=== PATIENT | female | born 1970 | race Hispanic/Latino ===

== ENCOUNTER 2020-09-21 12:35 | Inpatient (IN) | payer BC, OTHER ==
[~2020-09-21] VITALS: Ht 160 cm; Wt 92.3 kg
[~2020-09-21 12:35] MED LIST: ATOR10TA69 PO; GLIM4TAB36 PO; Gemfibrozil PO; INSLAN SQ; LOSA25TA41 PO; METF-446 PO; METO25TA6 PO
[2020-09-21] MEDS ORDERED: ONDANSETRON 4MG INJ ONE ×2 (13:50→20:58)
[2020-09-21] MEDS ORDERED: MORPHINE 4 MG SYG ONE (13:51)
[2020-09-21] MEDS ORDERED: 0.9%NACL 1000ML 1,000 ML IV ONE (13:51)
[2020-09-21 13:58] LABS: BASOPHILS % (AUTO) 0.7 % (0.0-5.0); EOSINOPHILS % (AUTO) 6.4 % (0.0-8.0); HEMATOCRIT 30.2 % (36-48); MEAN CORPUSCULAR HEMOGLOBIN 29.6 pg (27.0-33.0); MEAN CORPUSCULAR HGB CONC 31.5 g/dL (32.0-36.0); MEAN CORPUSCULAR VOLUME 94.1 fL (79-99); MONOCYTES % (AUTO) 5.4 % (3.0-13.0); NEUTROPHILS % (AUTO) 67.2 % (40.0-77.0); PLATELET COUNT (AUTO) 279 K/uL (130-400); RED BLOOD CELL COUNT(AUTO) 3.21 MIL/uL (4.00-5.50); WHITE BLOOD COUNT (AUTO) 6.9 K/uL (4.8-10.8)
[2020-09-21 14:06] LABS: CREATININE 4.7 mg/dL (0.5-1.5); POTASSIUM 4.6 mmol/L (3.5-5.1)
[2020-09-21 14:15] LABS: ALBUMIN 2.8 g/dL (3.5-5.0); BILIRUBIN,TOTAL 0.1 mg/dL (0.2-1.0); TOTAL PROTEIN, SERUM 7.7 g/dL (6.0-8.3)
[2020-09-21 14:36] LABS: APPEARANCE,URINE Cloudy (CLEAR); BILIRUBIN,URINE Negative (NEGATIVE); COLOR,URINE Yellow (YELLOW); GLUCOSE, URINE (UA) 250 mg/dL (NEGATIVE); KETONES,URINE Negative (NEGATIVE); LEUKOCYTE ESTERASE ,URINE Negative (NEGATIVE); NITRATE,URINE Negative (NEGATIVE); OCCULT BLOOD,URINE Trace (NEGATIVE); PH,URINE 5.5 (5.0-8.0); PROTEIN,URINE >=1000 mg/dL (NEGATIVE); UROBILINOGEN,URINE 0.2 mg/dL (0.2-1.0)
[2020-09-21 14:40] LABS: HCG,QUAL RESULT NEGATIVE (NEGATIVE)
[2020-09-21 14:43] LABS: BACTERIA,URINE Few /HPF (None Seen)
[2020-09-21 14:44] LABS: SQUAMOUS EPITHELIAL CELL,UR Few /HPF (0-2)
[2020-09-21] MEDS ORDERED: DEXTROSE 5%-WATER 1,000 ML IV SCH (16:45)
[2020-09-21] MEDS ORDERED: ACETAMINOPHEN 325 MG TAB PO PRN (16:45)
[2020-09-21] MEDS ORDERED: LACTULOSE 20 GM/30 ML UDCUP PO PRN (16:45)
[2020-09-21] MEDS ORDERED: CEFTRIAXONE 1G VIAL ONE (16:51)
[2020-09-21] MEDS ORDERED: FAMOTIDINE 20MG VIAL IV ONE ×2 (16:52→20:49)
[2020-09-21] MEDS ORDERED: HYDRALAZINE 20MG/ML VIAL IV PRN (17:00)
[2020-09-21] MEDS ORDERED: AMLODIPINE 5 MG TAB PO SCH (17:00)
[2020-09-21 17:08] LABS: HEMOGLOBIN A1C 5.2 % (4.0-6.0)
[2020-09-21] MEDS ORDERED: HYDRALAZINE 20MG/ML VIAL ONE (17:21)
[2020-09-21] MEDS ORDERED: ZOSYN 3.375GM+NS 50ML 50 ML IV ONE (17:21)
[2020-09-21 17:40] LABS: CREATININE,URINE RANDOM 108 mg/dL (30-135); SODIUM,URINE RANDOM 67 mmol/l (40-220)
[2020-09-21 17:50] LABS: % IRON SATURATION 33.7 % (22-44)
[2020-09-21 18:01] LABS: THYROID STIMULATING HORMONE 1.67 uIU/mL (0.36-3.74)
[2020-09-21] MEDS ORDERED: ACETAMINOPHEN WITH CODEINE 1 TAB TAB PO PRN ×2 (20:45)
[2020-09-21] MEDS ORDERED: HEPARIN 5,000 UNIT VIAL ONE (20:48)
[2020-09-21] MEDS ORDERED: METOPROLOL TARTRATE 25 MG TAB ONE (20:48)
[2020-09-21] MEDS ORDERED: AMLODIPINE 5 MG TAB ONE (20:48)
[2020-09-21] MEDS ORDERED: ACETAMINOPHEN WITH CODEINE 1 TAB TAB ONE (20:49)
[2020-09-21] MEDS ORDERED: DEXTROSE 5%-WATER 1,000 ML IV ONE (20:51)
[2020-09-21] MEDS: HEPARIN 5,000 UNIT VIAL SQ SCH (21:00)
[2020-09-21] MEDS: AMLODIPINE 5 MG TAB PO SCH (21:00)
[2020-09-21] MEDS: METOPROLOL TARTRATE 25 MG TAB PO SCH (21:00)
[2020-09-21 21:55] VITALS: BP 133/75
[2020-09-21 23:59] VITALS: BP 105/58
[2020-09-22 04:00] VITALS: BP 123/72
[2020-09-22 05:19] LABS: BASOPHILS % (AUTO) 0.8 % (0.0-5.0); EOSINOPHILS % (AUTO) 3.6 % (0.0-8.0); HEMATOCRIT 27.5 % (36-48); LYMPHOCYTES % (AUTO) 22.7 % (21.0-51.0); MEAN CORPUSCULAR HEMOGLOBIN 28.9 pg (27.0-33.0); MEAN CORPUSCULAR HGB CONC 30.5 g/dL (32.0-36.0); MEAN CORPUSCULAR VOLUME 94.5 fL (79-99); MONOCYTES % (AUTO) 4.4 % (3.0-13.0); NEUTROPHILS % (AUTO) 68.2 % (40.0-77.0); PLATELET COUNT (AUTO) 279 K/uL (130-400); RED BLOOD CELL COUNT(AUTO) 2.91 MIL/uL (4.00-5.50); RED CELL DISTRIBUTION WIDTH 14.9 % (11.0-15.5); WHITE BLOOD COUNT (AUTO) 6.4 K/uL (4.8-10.8)
[2020-09-22 05:46] LABS: ALBUMIN 2.6 g/dL (3.5-5.0); BILIRUBIN,TOTAL 0.1 mg/dL (0.2-1.0); CREATININE 4.8 mg/dL (0.5-1.5); POTASSIUM 5.1 mmol/L (3.5-5.1); TOTAL PROTEIN, SERUM 7.1 g/dL (6.0-8.3)
[2020-09-22 08:00] VITALS: BP 135/74
[2020-09-22] MEDS ORDERED: SODIUM BICARBONATE 650 MG TAB PO PRN (09:15)
[2020-09-22] MEDS: FAMOTIDINE 20MG VIAL IV SCH (10:13)
[2020-09-22] MEDS: AMLODIPINE 5 MG TAB PO SCH ×2 (10:14→21:18)
[2020-09-22] MEDS: METOPROLOL TARTRATE 25 MG TAB PO SCH ×2 (10:14→21:18)
[2020-09-22] MEDS: 0.9%NACL 1000ML 1,000 ML IV SCH (10:15)
[2020-09-22] MEDS: HEPARIN 5,000 UNIT VIAL SQ SCH ×3 (10:15→20:22)
[2020-09-22] MEDS: ONDANSETRON 4MG INJ IV PRN (10:23)
[2020-09-22 12:00] VITALS: BP 120/71
[2020-09-22] MEDS ORDERED: EPOETIN ALFA-EPBX (NON-ESRD) 10,000 UNIT/ML VIAL SQ SCH (12:00)
[2020-09-22] MEDS: CEFTRIAXONE 1G VIAL IVP SCH (12:27)
[2020-09-22 16:00] VITALS: BP 133/77
[2020-09-22] MEDS: INSULIN HUMULIN R 100 UNIT/ML 3ML SQ SCH ×2 (16:30→20:18)
[2020-09-22 20:00] VITALS: BP 137/72
[2020-09-22] MEDS ORDERED: TEMAZEPAM 7.5 MG CAPSULE PO PRN (20:00)
[2020-09-22 20:47] LABS: PROTEIN,URINE RANDOM 644.8 mg/dL (0-11.9)
[2020-09-22 23:53] VITALS: BP 97/52
[2020-09-23] MEDS: ONDANSETRON 4MG INJ IV PRN (02:27)
[2020-09-23] MEDS: 0.9%NACL 1000ML 1,000 ML IV SCH ×2 (02:30→04:30)
[2020-09-23 04:00] VITALS: BP 104/56
[2020-09-23 05:30] LABS: BASOPHILS % (AUTO) 0.9 % (0.0-5.0); EOSINOPHILS % (AUTO) 7.5 % (0.0-8.0); HEMATOCRIT 26.3 % (36-48); MEAN CORPUSCULAR HEMOGLOBIN 29.1 pg (27.0-33.0); MEAN CORPUSCULAR HGB CONC 30.4 g/dL (32.0-36.0); MEAN CORPUSCULAR VOLUME 95.6 fL (79-99); MONOCYTES % (AUTO) 5.7 % (3.0-13.0); NEUTROPHILS % (AUTO) 56.5 % (40.0-77.0); PLATELET COUNT (AUTO) 238 K/uL (130-400); RED BLOOD CELL COUNT(AUTO) 2.75 MIL/uL (4.00-5.50); RED CELL DISTRIBUTION WIDTH 15.1 % (11.0-15.5); WHITE BLOOD COUNT (AUTO) 5.6 K/uL (4.8-10.8)
[2020-09-23 05:49] LABS: ALBUMIN 2.4 g/dL (3.5-5.0); BILIRUBIN,TOTAL 0.1 mg/dL (0.2-1.0); PHOSPHORUS 6.5 mg/dL (2.5-4.9); POTASSIUM 5.6 mmol/L (3.5-5.1); TOTAL PROTEIN, SERUM 6.6 g/dL (6.0-8.3)
[2020-09-23 07:00] VITALS: BP 155/62
[2020-09-23] MEDS: INSULIN HUMULIN R 100 UNIT/ML 3ML SQ SCH ×4 (07:30→21:00)
[2020-09-23] MEDS: HEPARIN 5,000 UNIT VIAL SQ SCH ×3 (09:00→21:14)
[2020-09-23] MEDS: METOPROLOL TARTRATE 25 MG TAB PO SCH ×2 (09:00→21:13)
[2020-09-23] MEDS: AMLODIPINE 5 MG TAB PO SCH ×2 (09:00→21:13)
[2020-09-23] MEDS: FAMOTIDINE 20MG VIAL IV SCH (09:00)
[2020-09-23] MEDS: CEFTRIAXONE 1G VIAL IVP SCH (10:30)
[2020-09-23 11:30] VITALS: BP 151/72
[2020-09-23] MEDS ORDERED: KAYEXALATE 15GM/60ML ONE (11:53)
[2020-09-23] MEDS ORDERED: KAYEXALATE 15GM/60ML PO SCH (14:15)
[2020-09-23 16:00] VITALS: BP 121/74
[2020-09-23 20:00] VITALS: BP 147/71
[2020-09-23 23:50] VITALS: BP 117/61
[2020-09-24 04:46] VITALS: BP 112/59
[2020-09-24 05:16] LABS: EOSINOPHILS % (AUTO) 9.5 % (0.0-8.0); HEMATOCRIT 28.6 % (36-48); LYMPHOCYTES % (AUTO) 36.5 % (21.0-51.0); MEAN CORPUSCULAR HEMOGLOBIN 29.8 pg (27.0-33.0); MEAN CORPUSCULAR HGB CONC 31.1 g/dL (32.0-36.0); MEAN CORPUSCULAR VOLUME 95.7 fL (79-99); MONOCYTES % (AUTO) 6.4 % (3.0-13.0); NEUTROPHILS % (AUTO) 46.3 % (40.0-77.0); PLATELET COUNT (AUTO) 253 K/uL (130-400); RED BLOOD CELL COUNT(AUTO) 2.99 MIL/uL (4.00-5.50); RED CELL DISTRIBUTION WIDTH 15.4 % (11.0-15.5); WHITE BLOOD COUNT (AUTO) 6.2 K/uL (4.8-10.8)
[2020-09-24 05:37] LABS: ALBUMIN 2.7 g/dL (3.5-5.0); BILIRUBIN,TOTAL 0.1 mg/dL (0.2-1.0); CREATININE 5.6 mg/dL (0.5-1.5); TOTAL PROTEIN, SERUM 7.2 g/dL (6.0-8.3)
[2020-09-24 07:00] VITALS: BP 140/72
[2020-09-24] MEDS: INSULIN HUMULIN R 100 UNIT/ML 3ML SQ SCH ×2 (07:18→11:30)
[2020-09-24] MEDS: AMLODIPINE 5 MG TAB PO SCH (09:51)
[2020-09-24] MEDS: CEFTRIAXONE 1G VIAL IVP SCH (09:51)
[2020-09-24] MEDS: FAMOTIDINE 20MG VIAL IV SCH (09:51)
[2020-09-24] MEDS: METOPROLOL TARTRATE 25 MG TAB PO SCH (09:51)
[2020-09-24] MEDS: HEPARIN 5,000 UNIT VIAL SQ SCH (09:55)
[2020-09-24 11:30] VITALS: BP 125/67
[2020-09-24] MEDS ORDERED: METF-446 PO (14:51)
[2020-09-24] MEDS ORDERED: ATOR10TA69 PO (14:51)
[2020-09-24] MEDS ORDERED: LOSA25TA41 PO (14:51)
[2020-09-24] MEDS ORDERED: Gemfibrozil PO (14:51)
[2020-09-24] MEDS ORDERED: GLIM4TAB36 PO (14:51)
[2020-09-24] MEDS ORDERED: METO25TA6 PO (14:51)
[2020-11-13] MEDS ORDERED: LOSA50TA64 PO (04:56)
[2020-11-13] MEDS ORDERED: PRED20TA3 PO (04:56)
[2020-11-13] MEDS ORDERED: [UNRECOGNIZED DRUG - CODE] PO (04:56)
[2020-11-13] MEDS ORDERED: CALC0.253 PO (04:56)
[2020-11-13] MEDS ORDERED: FLUT1BLS3 IH (04:56)
[2020-11-13] MEDS ORDERED: FOLI1TAB85 PO (04:56)
[2020-11-15] MEDS ORDERED: CITA-106 PO (16:19)
[2020-11-15] MEDS ORDERED: LOSA100T2 PO (16:19)
[2020-11-15] MEDS ORDERED: AMLO5TAB4 PO (16:19)
[2020-11-15] MEDS ORDERED: CALC667C10 PO (16:19)
[2020-11-15] MEDS ORDERED: TRAZ-253 PO (16:19)
== END 2020-09-24 15:48 | disposition home or self-care (01) | DRG 690 ==
LOC: EDH 12:35 → EDHIP 16:42 → 3BH 21:37
PROVIDERS: ADMIT Internal Medicine; ATTEND Internal Medicine
DX: N10 Acute pyelonephritis (principal); I12.0 Hypertensive chronic kidney disease with stage 5 chronic kidney disease or end stage renal disease; I12.9 Hypertensive chronic kidney disease with stage 1 through stage 4 chronic kidney disease, or unspecified chronic kidney disease; N17.9 Acute kidney failure, unspecified; E11.22 Type 2 diabetes mellitus with diabetic chronic kidney disease; E66.01 Morbid (severe) obesity due to excess calories; D63.8 Anemia in other chronic diseases classified elsewhere; E87.5 Hyperkalemia; J45.909 Unspecified asthma, uncomplicated; N18.6 End stage renal disease; E87.8 Other disorders of electrolyte and fluid balance, not elsewhere classified; N28.89 Other specified disorders of kidney and ureter; S30.1XXA Contusion of abdominal wall, initial encounter; Z82.0 Family history of epilepsy and other diseases of the nervous system; Z82.3 Family history of stroke; Z82.49 Family history of ischemic heart disease and other diseases of the circulatory system; Z82.5 Family history of asthma and other chronic lower respiratory diseases; Z83.3 Family history of diabetes mellitus; Z91.19 Patient's noncompliance with other medical treatment and regimen; Z98.84 Bariatric surgery status; Z90.49 Acquired absence of other specified parts of digestive tract; X58.XXXA Exposure to other specified factors, initial encounter; Y93.89 Activity, other specified; Y92.89 Other specified places as the place of occurrence of the external cause; Y99.8 Other external cause status
CPT/HCPCS: 36415; 74176; 76705; 76770; 80053; 80061; 81001; 81025; 82550; 82570; 82948; 83036; 83540; 83550; 83605; 83690; 83970; 84100; 84132; 84156; 84300; 84443; 84484; 85025; 87040; 87088; 93005; G0378; J0360; J0696; J1644; J2270; J2405; J2543; J3490; J7030; J7070

== ENCOUNTER 2021-12-23 13:41 | Emergency (ER) | payer BC ==
[~2021-12-23] VITALS: Ht 160 cm; Wt 93.0 kg
[~2021-12-23 13:41] MED LIST changes: +AMLO5TAB4 PO; +CALC667C10 PO; +CITA-106 PO; +FLUT1BLS3 IH; +FOLI1TAB85 PO; -GLIM4TAB36 PO; -Gemfibrozil PO; +HYDR-3421 PO; -INSLAN SQ; +LOSA100T2 PO; -LOSA25TA41 PO; -METF-446 PO; +TRAZ-253 PO; +[UNRECOGNIZED DRUG - CODE] PO
[2021-12-23 16:16] LABS: BASOPHILS % (AUTO) 0.8 % (0.0-5.0); LYMPHOCYTES % (AUTO) 25.4 % (21.0-51.0); MEAN CORPUSCULAR HEMOGLOBIN 29.7 pg (27.0-33.0); MEAN CORPUSCULAR HGB CONC 31.3 g/dL (32.0-36.0); MEAN CORPUSCULAR VOLUME 94.9 fL (79-99); MONOCYTES % (AUTO) 6.7 % (3.0-13.0); NEUTROPHILS % (AUTO) 60.6 % (40.0-77.0); PLATELET COUNT (AUTO) 173 K/uL (130-400); RED BLOOD CELL COUNT(AUTO) 4.11 MIL/uL (4.00-5.50); RED CELL DISTRIBUTION WIDTH 14.7 % (11.0-15.5); WHITE BLOOD COUNT (AUTO) 7.9 K/uL (4.8-10.8)
[2021-12-23 16:50] LABS: CREATININE 4.9 mg/dL (0.5-1.5); POTASSIUM 4.5 mmol/L (3.5-5.1)
[2021-12-23 16:58] LABS: ALBUMIN 3.8 g/dL (3.5-5.0); TOTAL PROTEIN, SERUM 8.3 g/dL (6.0-8.3)
[2021-12-23 17:00] VITALS: BP 166/89
[2021-12-23 17:12] LABS: BILIRUBIN,TOTAL 0.3 mg/dL (0.2-1.0)
[2021-12-23] MEDS ORDERED: GENTAMICIN SULFATE 0.3% 5ML DROPS ONE (17:30)
[2021-12-23] MEDS ORDERED: GENTAMICIN SULFATE 0.3% 3.5 GM OPHTH OINT OU SCH (17:30)
== END 2021-12-23 17:40 | disposition home or self-care (01) ==
LOC: EDH 13:41
DX: H10.9 Unspecified conjunctivitis (principal); I12.0 Hypertensive chronic kidney disease with stage 5 chronic kidney disease or end stage renal disease; E11.22 Type 2 diabetes mellitus with diabetic chronic kidney disease; N18.6 End stage renal disease; E78.00 Pure hypercholesterolemia, unspecified; Z79.899 Other long term (current) drug therapy; Z90.49 Acquired absence of other specified parts of digestive tract; Z98.84 Bariatric surgery status; Z99.2 Dependence on renal dialysis
CPT/HCPCS: 36415; 80053; 85025

== ENCOUNTER 2022-01-31 05:22 | Inpatient (IN) | payer BC ==
[2022-01-31] VITALS (18 sets, daily range): BP systolic 124–194; BP diastolic 66–105
[~2022-01-31] VITALS: Ht 157.5 cm; Wt 93.4 kg
[2022-01-31 05:49] LABS: BASOPHILS % (AUTO) 0.3 % (0.0-5.0); EOSINOPHILS % (AUTO) 0.4 % (0.0-8.0); LYMPHOCYTES % (AUTO) 6.8 % (21.0-51.0); MEAN CORPUSCULAR HEMOGLOBIN 29.2 pg (27.0-33.0); MEAN CORPUSCULAR VOLUME 94.1 fL (79-99); MONOCYTES % (AUTO) 5.5 % (3.0-13.0); NEUTROPHILS % (AUTO) 86.5 % (40.0-77.0); PLATELET COUNT (AUTO) 229 K/uL (130-400); RED BLOOD CELL COUNT(AUTO) 4.25 MIL/uL (4.00-5.50); RED CELL DISTRIBUTION WIDTH 15.6 % (11.0-15.5); WHITE BLOOD COUNT (AUTO) 13.9 K/uL (4.8-10.8)
[2022-01-31 06:12] LABS: ALANINE AMINOTRANSFERASE 22 U/L (12-78); ALBUMIN 3.7 g/dL (3.5-5.0); ASPARTATE AMINOTRANSFERASE 17 U/L (10-37); CARBON DIOXIDE 23 mmol/L (21-32); CHLORIDE 100 mmol/L (101-111); CREATININE 6.2 mg/dL (0.5-1.5); GLOMERULAR FILTR. RATE CALC 8 mL/min (>60); GLUCOSE,RANDOM 228 mg/dL (70-105); LIPASE 62 U/L (114-286); SODIUM SERUM 136 mmol/L (136-145); TOTAL PROTEIN, SERUM 8.9 g/dL (6.0-8.3); UREA NITROGEN, BLOOD 57 mg/dL (7-18)
[2022-01-31 06:14] LABS: POTASSIUM 6.1 mmol/L (3.5-5.1)
[2022-01-31] MEDS ORDERED: CALCIUM GLUC 1GM/10ML VIAL ONE (06:19)
[2022-01-31] MEDS ORDERED: DEXTROSE 50%-WATER 50 ML DISP.SYRIN IV ONE (06:19)
[2022-01-31] MEDS ORDERED: SODIUM BICARB 50MEQ 50ML VIAL 50 ML ONE (06:19)
[2022-01-31] MEDS ORDERED: INSULIN HUMULIN R 100 UNIT/ML 3ML ONE (06:20)
[2022-01-31] MEDS ORDERED: MORPHINE 4 MG SYG ONE ×2 (06:22→11:25)
[2022-01-31] MEDS ORDERED: MORPHINE 4 MG SYG IVP ONE (06:30)
[2022-01-31] MEDS ORDERED: VANCOMYCIN 1G VIAL IVPB SCH (08:00)
[2022-01-31] MEDS ORDERED: NITROGLYCERIN 1GM OINT 1 INCH/1GM TD ONE (08:00)
[2022-01-31] MEDS ORDERED: 0.9% NACL 250ML 250 ML IV SCH (08:00)
[2022-01-31] MEDS ORDERED: VANCOMYCIN 750MG VIAL IVPB SCH (08:00)
[2022-01-31] MEDS ORDERED: ASPIRIN 325MG EC TAB PO ONE (08:00)
[2022-01-31] MEDS ORDERED: 0.9% NACL 250ML IV SCH (08:00)
[2022-01-31] MEDS ORDERED: ENOXAPARIN SODIUM 100 MG/1 ML SQ SCH (08:00)
[2022-01-31] MEDS ORDERED: ACETAMINOPHEN 325 MG TAB PO PRN (09:00)
[2022-01-31] MEDS: CEFTRIAXONE 1G VIAL IV SCH (09:13)
[2022-01-31] MEDS: FAMOTIDINE 20MG TAB PO SCH ×2 (09:13→22:22)
[2022-01-31] MEDS ORDERED: METOPROLOL TARTRATE 1 MG/ML 5ML VIAL IV PRN (09:30)
[2022-01-31] MEDS ORDERED: VANCOMYCIN PROTOCOL PER PHARMACY IV SCH (09:30)
[2022-01-31] MEDS: HEPARIN 5,000 UNIT VIAL SQ SCH ×2 (09:30→22:22)
[2022-01-31 09:38] LABS: CRP QUANTITATIVE 54.4 mg/L (0.00-9.0)
[2022-01-31] MEDS ORDERED: METO50TA18 PO (09:39)
[2022-01-31] MEDS ORDERED: FERR-72 PO (09:39)
[2022-01-31 09:44] LABS: INR 0.93 (0.85-1.15); PROTHROMBIN TIME 10.2 SEC (9.6-11.6)
[2022-01-31 09:45] LABS: PARTIAL THROMBOPLASTIN TIME 28.8 SEC (26.3-35.5)
[2022-01-31] MEDS: ACETAMINOPHEN 325 MG TAB PO PRN ×2 (11:06→17:08)
[2022-01-31] MEDS: ONDANSETRON 4MG INJ IV PRN ×2 (11:06→17:01)
[2022-01-31] MEDS: INSULIN HUMULIN R 100 UNIT/ML 3ML SQ SCH ×2 (11:30→17:00)
[2022-01-31 19:06] LABS: HEPATITIS B SURFACE ANTIGEN Non-Reactive (Nonreactive)
[2022-01-31] MEDS: BENZONATATE 100 MG CAPSULE PO PRN (22:22)
[2022-02-01 04:20] VITALS: BP 132/67
[2022-02-01 05:03] LABS: HEMATOCRIT 32.2 % (36-48); MEAN CORPUSCULAR HGB CONC 30.4 g/dL (32.0-36.0); MEAN CORPUSCULAR VOLUME 95.3 fL (79-99); RED BLOOD CELL COUNT(AUTO) 3.38 MIL/uL (4.00-5.50); RED CELL DISTRIBUTION WIDTH 15.6 % (11.0-15.5)
[2022-02-01 05:09] LABS: CREATININE 5.1 mg/dL (0.5-1.5); POTASSIUM 4.8 mmol/L (3.5-5.1)
[2022-02-01] MEDS: INSULIN HUMULIN R 100 UNIT/ML 3ML SQ SCH ×2 (06:34→11:30)
[2022-02-01] MEDS: BENZONATATE 100 MG CAPSULE PO PRN (06:41)
[2022-02-01 07:00] VITALS: BP 135/67
[2022-02-01] MEDS: ALBUTEROL 0.042% 1.25MG/3ML IH SCH ×2 (08:45→11:53)
[2022-02-01] MEDS: CEFTRIAXONE 1G VIAL IV SCH (08:55)
[2022-02-01] MEDS: FAMOTIDINE 20MG TAB PO SCH (08:55)
[2022-02-01] MEDS: HEPARIN 5,000 UNIT VIAL SQ SCH (08:56)
[2022-02-01] MEDS ORDERED: PREDNISONE 10 MG TABLET PO SCH (09:00)
[2022-02-01 11:00] VITALS: BP 147/72
[2022-02-01] MEDS ORDERED: LEVO500T90 PO (12:13)
[2022-02-01] MEDS ORDERED: PRED10TA3 PO (12:13)
== END 2022-02-01 13:43 | disposition home or self-care (01) | DRG 193 ==
LOC: EDH 05:22 → EDHIP 08:48 → 4CH 12:30
PROVIDERS: ADMIT Hospitalist; ATTEND Hospitalist
PROC: 5A1D70Z Performance of Urinary Filtration, Intermittent, Less than 6 Hours Per Day (ICD-10-PCS; principal; 2022-01-31)
DX: J15.9 Unspecified bacterial pneumonia (principal); I21.A1 Myocardial infarction type 2; N18.6 End stage renal disease; I12.0 Hypertensive chronic kidney disease with stage 5 chronic kidney disease or end stage renal disease; J81.1 Chronic pulmonary edema; I16.0 Hypertensive urgency; E87.70 Fluid overload, unspecified; E87.5 Hyperkalemia; Z68.37 Body mass index [BMI] 37.0-37.9, adult; E66.9 Obesity, unspecified; D64.9 Anemia, unspecified; Z99.2 Dependence on renal dialysis; Z20.822 Contact with and (suspected) exposure to COVID-19; E78.00 Pure hypercholesterolemia, unspecified; E11.22 Type 2 diabetes mellitus with diabetic chronic kidney disease; Z90.49 Acquired absence of other specified parts of digestive tract; Z82.5 Family history of asthma and other chronic lower respiratory diseases; Z83.3 Family history of diabetes mellitus; Z82.49 Family history of ischemic heart disease and other diseases of the circulatory system; Z82.0 Family history of epilepsy and other diseases of the nervous system; Z82.3 Family history of stroke; Z98.84 Bariatric surgery status
CPT/HCPCS: 36415; 71045; 71046; 80048; 80053; 82310; 82948; 83690; 83880; 84145; 84484; 85025; 85027; 85610; 85730; 86140; 86704; 86706; 87040; 87340; 87635; 87804; 90935; 93005; 94640; 94664; C9803; G0378; J0610; J0696; J1644; J1815; J2270; J2405; J3490; J7070; J7512

== ENCOUNTER 2024-07-28 12:19 | Inpatient (IN) | payer BC ==
[~2024-07-28] VITALS: Ht 160 cm; Wt 94.4 kg
[~2024-07-28 12:19] MED LIST changes: -AMLO5TAB4 PO; -ATOR10TA69 PO; +ATOR20TA PO; +CALC0.253 PO; -CALC667C10 PO; -CITA-106 PO; +FERR-72 PO; -FLUT1BLS3 IH; +FOLI0.8T22 PO; -FOLI1TAB85 PO; -HYDR-3421 PO; +HYDR50TA37 PO; -LOSA100T2 PO; -METO25TA6 PO; +METO50TA18 PO; +SEMA0.258 SQ; +SEVE800T7 PO; -TRAZ-253 PO; -[UNRECOGNIZED DRUG - CODE] PO
[2024-07-28 13:32] LABS: BASOPHILS # (AUTO) 0.05 K/uL (0.00-0.20); BASOPHILS % (AUTO) 0.6 % (0.0-5.0); EOSINOPHILS # (AUTO) 1.24 K/uL (0.00-0.70); EOSINOPHILS % (AUTO) 15.1 % (0.0-8.0); HEMATOCRIT 36.5 % (36-48); IMMATURE GRANULOCYTE ABSOLUTE 0.02 K/uL (0-1); LYMPHOCYTES # (AUTO) 1.4 K/uL (1.0-4.8); LYMPHOCYTES % (AUTO) 17.2 % (21.0-51.0); MEAN CORPUSCULAR HGB CONC 30.7 g/dL (32.0-36.0); MEAN CORPUSCULAR VOLUME 104.3 fL (79-99); MONOCYTES # (AUTO) 0.7 K/uL (0.1-1.0); MONOCYTES % (AUTO) 8.2 % (3.0-13.0); NEUTROPHILS # (AUTO) 4.8 K/uL (1.8-7.7); NEUTROPHILS % (AUTO) 58.7 % (40.0-77.0); PLATELET COUNT (AUTO) 231 K/uL (130-400); RED CELL DISTRIBUTION WIDTH 13.7 % (11.0-15.5); WHITE BLOOD COUNT (AUTO) 8.2 K/uL (4.8-10.8)
[2024-07-28 13:50] LABS: POTASSIUM 5.2 mmol/L (3.5-5.1)
[2024-07-28 14:05] LABS: CREATININE 8.7 mg/dL (0.5-1.0)
[2024-07-28 14:09] LABS: B-TYPE NATRIURETIC PEPTIDE 591 pg/mL (0-100)
--- NOTE | 2024-07-28 15:28 | ERN ---
General Chief Complaint: Weakness Stated Complaint: MULT COMPLAINTS Time Seen by MD: 12:21 Source: patient History of Present Illness Initial Comments PATIENT IS A 53-YEAR-OLD FEMALE COMING IN TO BE EVALUATED FOR MULTIPLE COMPLAINTS. PATIENT STATES HE HAS BEEN HAVING WEAKNESS AND SHE ALSO PRESENTS WITH NAUSEOUSNESS. HE STATES HE HAS A HISTORY OF END-STAGE RENAL DISEASE ON MALIK LYSIS. Allergies: Coded Allergies: No Known Allergies (Verified Allergy, 12/16/12) Home Meds Reported Medications Semaglutide (Ozempic) 0.25 Mg/0.368 Ml Pen.injctr, 0.5 MG SQ QWEEK 06/12/23 Calcitriol (Calcitriol) 0.25 Mcg Capsule, 0.25 MCG PO DAILY, CAP 06/12/23 Ferrous Sulfate (Ferrous Sulfate) 325 Mg Tablet, 325 MG PO DAILY, TAB 09/13/22 Metoprolol Tartrate (Metoprolol Tartrate) 50 Mg Tablet, 50 MG PO BID, TAB 09/13/22 Atorvastatin Calcium (Lipitor) 20 Mg Tablet, 20 MG PO DAILY, TAB !!Remember to check dose!! 09/13/22 Folic Acid/Vitamin B Comp W-C (Marylou-Ha Tablet) 0.8 Mg Tablet, 0.8 MG PO DAILY, TAB 09/13/22 Sevelamer Carbonate (Renvela) 800 Mg Tablet, 1600 MG PO TID, TAB 09/13/22 Hydralazine HCl (Hydralazine HCl) 50 Mg Tablet, 50 MG PO TID, TAB 09/13/22 Past Medical History Past Medical History: Diabetes-Type II, High Cholesterol, Hypertension, Renal Disese Medical History Other: KIDNEY DISEASE Past Surgical History: Cholecystectomy, LAVA Surgical History Other: GASTRIC BYPASS, TUMMY TUCK, RT EYE SX Family History Family History: Negative Social History Social History: Negative ROS Dictation CONSTITUTIONAL: NO CHILLS, NO FEVER, WEAKNESS, NO DIAPHORESIS, NO MALAISE. HEAD/FACE: NO SIGNS OF TRAUMA. EENT: NO EYE PAIN, NO BLURRED VISION, NO TEARING, NO DOUBLE VISION, NO EAR PAIN, NO EAR DISCHARGE, NO NOSE PAIN, NO NASAL CONGESTION, NO THROAT PAIN, NO THROAT SWELLING, NO MOUTH PAIN. RESPIRATORY: NO COUGH, NO ORTHOPNEA, NO SOB, NO STRIDOR, NO WHEEZING. CARDIOVASCULAR: NO CHEST PAIN, NO EDEMA, NO PALPITATIONS, NO SYNCOPE. GASTROINTESTINAL/ABDOMINAL: NO ABDOMINAL PAIN, NO CONSTIPATION, NO DIARRHEA, NO NAUSEA, NO VOMITING. GENITOURINARY: NO ABNORMAL DISCHARGE, NO DYSURIA, NO FREQUENT URINATION, NO HEMATURIA. NO COMPLAINTS OF PAIN IN THE GENITALS. MUSCULOSKELETAL: NO BACK PAIN, NO GOUT, NO JOINT PAIN, NO JOINT SWELLING, NO MUSCLE PAIN, NO MUSCLE STIFFNESS, NO NECK PAIN. INTEGUMENTARY: NO CHANGE IN COLOR, NO CHANGE IN HAIR/NAILS, NO DRYNESS, NO LESION, NO LUMPS, NO RASH. NEUROLOGICAL/PSYCH: NO ANXIETY, NOT DEPRESSED, NO EMOTIONAL PROBLEM, NO HEADACHE, NO NUMBNESS, NO PRE-EXISTING DEFICIT, NO HISTORY OF SEIZURES, NO TR EMORS, NO WEAKNESS. HEMATOLOGIC/LYMPHATIC: NOT ANEMIC, NO HISTORY OF BLOOD CLOTS, NO APPARENT BLEEDING, NO BRUISING, GLANDS NOT SWOLLEN. ALL SYSTEMS NEGATIVE, EXCEPT NOTED. Physical Exam Physical Exam Dictation VITAL SIGNS: REVIEWED. GENERAL APPEARANCE: ALERT, ORIENTED X3, NO ACUTE DISTRESS, OBESE. HEAD AND FACE: NON-TRAUMATIC. EYES: PERRL, PINK CONJUNCTIVAS, EYELID NO TRAUMA, ANTERIOR CHAMBER CLEAR. EARS: PINNAS INTACT AND NO SIGNS OF TRAUMA OR ERYTHEMA. EAR CANALS CLEAR AND NO DISCHARGE. TMS NO ERYTHEMA. NOSE: NO DISCHARGE, NO BLEEDING. OROPHARYNX: MOUTH NORMAL, TEETH NO CARIES, TONGUE PINK. PHARYNX CLEAR, NO ERYTHEMA. TONSILS NO EXUDATES, NO ABSCESSES NOTED. MUCOUS MEMBRANE MOIST. NECK: SUPPLE, NON-TENDER, NO THYROMEGALY, NO MASSES, NO JVD, NO BRUITS. BREAST: DEFERRED. CHEST: NO TENDERNESS, NO CREPITUS, NO PARADOXICAL MOVEMENT, NO RETRACTIONS. LUNGS: CLEAR, WELL-VENTILATED, SYMMETRIC, NO RALES, NO WHEEZING, NO RHONCHI, NO STRIDOR, GOOD BREATH SOUNDS BILATERALLY. HEART: REGULAR RATE, REGULAR RHYTHM, NO MURMUR, NO GALLOPS. VASCULAR: NO PERIPHERAL EDEMA. ABDOMEN: SOFT, POSITIVE BOWEL SOUNDS, NONDISTENDED, NO GUARDING, NONTENDER, NO REBOUND, NO MASSES NO HEPATOMEGALY, NO SPLENOMEGALY, NO FOUNTAIN'S SIGN, NO HERNIAS. RECTAL: DEFERRED. GENITAL: DEFERRED. NEUROLOGICAL: NORMAL SPEECH, GROSS MOTOR FUNCTION INTACT, GROSS SENSORY FUNCTION INTACT. MUSCULOSKELETAL: NECK NONTENDER, FULL RANGE OF MOTION, BACK NONTENDER, FULL RANGE OF MOTION. EXTREMITIES: NONTENDER, FULL RANGE OF MOTION. SKIN: COLOR PINK, DRY, NO TURGOR, NO RASH, NO LACERATIONS, NO ABRASIONS, NO CONTUSIONS. LYMPHATICS: DEFERRED. Results Laboratory and Microbiology Lab and Micro Result Laboratory Tests Test 07/28/24 13:17 07/28/24 14:53 White Blood Count 8.2 K/uL (4.8-10.8) Red Blood Count 3.50 MIL/uL (4.00-5.50) L Hemoglobin 11.2 g/dL (12.0-16.0) L Hematocrit 36.5 % (36-48) Mean Corpuscular Volume 104.3 fL (79-99) H Mean Corpuscular Hemoglobin 32.0 pg (27.0-33.0) Mean Corpuscular Hemoglobin Concent 30.7 g/dL (32.0-36.0) L Red Cell Distribution Width 13.7 % (11.0-15.5) Platelet Count 231 K/uL (130-400) Mean Platelet Volume 9.8 fL (7.5-10.5) Immature Granulocyte % (Auto) 0.2 % (0-1) Neutrophils (%) (Auto) 58.7 % (40.0-77.0) Lymphocytes (%) (Auto) 17.2 % (21.0-51.0) L Monocytes (%) (Auto) 8.2 % (3.0-13.0) Eosinophils (%) (Auto) 15.1 % (0.0-8.0) H Basophils (%) (Auto) 0.6 % (0.0-5.0) Neutrophils # (Auto) 4.8 K/uL (1.8-7.7) Lymphocytes # (Auto) 1.4 K/uL (1.0-4.8) Monocytes # (Auto) 0.7 K/uL (0.1-1.0) Eosinophils # (Auto) 1.24 K/uL (0.00-0.70) H Basophils # (Auto) 0.05 K/uL (0.00-0.20) Absolute Immature Granulocyte (auto 0.02 K/uL (0-1) Nucleated Red Blood Cells 0.0 % (0.0-0.19) White Cell Morphology Comment See comments Red Blood Cell Morphology See comments Sodium Level 142 mmol/L (136-145) Potassium Level 5.2 mmol/L (3.5-5.1) H Chloride Level 105 mmol/L (101-111) Carbon Dioxide Level 30 mmol/L (21-32) Blood Urea Nitrogen 58 mg/dL (7-18) H Creatinine 8.7 mg/dL (0.5-1.0) *H Glomerular Filtration Rate Calc 5 mL/min (>90) Random Glucose 75 mg/dL (70-105) Total Calcium 7.4 mg/dL (8.5-10.1) L Troponin I High Sensitivity 53 ng/L (4-50) *H 54 ng/L (4-50) *H B-Type Natriuretic Peptide 591 pg/mL (0-100) H Labs Reviewed?: Yes EKG/XRAY/US/CT/MRI EKG Comment 07/28/2024 TIME 12:43 P.M. VENTRICULAR RATE 83 SINUS R[address]M [place] [address] WAVE ELEVATION OR DEPRESSION MDM MDM: DIFFERENTIAL DIAGNOSIS: ACS, NSTEMI, END-STAGE RENAL DISEASE REQUIRING DIALYSIS, HYPERKALEMIA, RATIONALE: TESTS CONSIDERED AND ORDERED SECONDARY TO SHARED DECISION MAKING INCLUDE: LABS, ECG AND RADIOLOGY PREVIOUS OUTSIDE RECORDS REVIEWED: OLD ER VISITS. RISK OF COMPLICATION AND/OR MORBIDITY OR MORTALITY OF PATIENT MANAGEMENT: NONE MEDICATIONS-PER MEDICATION RECONCILIATION NEED FOR HOSPITALIZATION: PATIENT DOES MEET CRITERIA FOR HOSPITALIZATION. NEED FOR EMERGENCY MAJOR/MINOR SURGERY: NO THERE ARE NO SOCIAL CONCERNS WITH THIS PATIENT. PRESCRIPTION DRUG MANAGEMENT PRESCRIPTIONS WILL INCLUDE SYMPTOMATIC CARE PATIENT'S PRIOR EXTERNAL MEDICAL RECORDS FROM OTHER ER VISITS WERE REVIEWED BY ME INDICATED. PRIOR TESTING AND RESULTS FROM PREVIOUS VISITS WERE REVIEWED. PRIOR TESTS WERE TAKEN INTO ACCOUNT WITH MEDICAL DECISION MAKING AND RESOURCE U TILIZATION, INDEPENDENT HISTORIAN/HISTORIANS WERE USED TO OBTAIN COMPLETE MEDICAL HISTORY. I INDEPENDENTLY INTERPRETED THE TEST THAT WERE PERFORMED, RESULTS WERE REVIEWED BY ME AND CONSIDERED FINDINGS ON RADIOLOGY IF ORDERED. MEDICAL MANAGEMENT AND EXAMINATION INTERPRETATION DISCUSSIONS WERE HAD BY ME WITH OTHER QUALIFIED HEALTHCARE PROFESSIONALS INDICATED FOR THE PATIENT'S CA RE. PATIENT WILL BE ADMITTED UNDER THE CARE OF HOSPITALIST GROUP FOR ONGOING MANAGEMENT OF ACS AND END-STAGE RENAL DISEASE REQUIRING DIALYSIS. ED Course Orders Procedure Category Date Status Time 12 Lead Ekg Tracing- EKG 07/28/24 Complete Technical 12:37 Cbc With Differential LAB 07/28/24 Complete 12:37 Basic Metabolic Panel LAB 07/28/24 Complete 12:37 B-Type Natriuretic LAB 07/28/24 Complete Peptide 12:37 Chest 1vw RAD 07/28/24 Resulted 12:37 Troponin I High LAB 07/28/24 Complete Sensitivity 12:37 Troponin I High LAB 07/28/24 Complete Sensitivity 14:46 Ondansetron 4mg Inj PHA 07/28/24 Complete (Zofran 4mg Inj) 16:30 Current Medications Medications (Trade) Dose Ordered Sig/King Route PRN Reason Start Time Stop Time Status Last Admin Dose Admin Ondansetron HCl (zoFRAN 4MG INJ) 4 mg ONCE ONCE IVP 07/28/24 16:30 07/28/24 16:31 DC 07/28/24 16:18 Vital Signs Date Time Temp Pulse Resp B/P (MAP) Pulse Ox O2 Delivery O2 Flow Rate FiO2 07/28/24 16:10 97.0 72 16 152/70 97 Room Air* 0 21 07/28/24 14:08 98.1 82 16 126/65 98 Room Air* 0 21 07/28/24 12:31 97.0 84 18 126/67 98 Room Air 0 DX & DISP Disposition: Inpatient Decision to Admit Time: 16:38 Departure Impression: Primary Impression: ESRD on dialysis Additional Impressions: Hyperkalemia, ACS (acute coronary syndrome) Condition: Stable Referrals: THOMAS HEATH M.D. (PCP) CADNI MERLOS MD Jul 28, 2024 15:28
--- NOTE | 2024-07-28 15:40 | EKG ---
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
--- NOTE | 2024-07-28 15:50 | NUR ---
CARE TRANSFERED TO [facility] AT THIS TIME
--- NOTE | 2024-07-28 15:56 | HMCIMG ---
CHEST 1VW HISTORY: Shortness of breath COMPARISON: 06/11/2023 FINDINGS: A frontal projection of the chest was obtained. No acute pulmonary infiltrates is seen. The heart is normal in size. Prominent interstitial markings are seen. Degenerative changes are seen. No evidence of aortic calcification is seen. IMPRESSION: 1. No acute pulmonary infiltrate is seen.
[2024-07-28] MEDS: ondanSETRON 4MG INJ IVP ONE (16:18)
--- NOTE | 2024-07-28 16:47 | HP ---
[facility] HISTORY [facility] PHYSICAL Date of Service: Jul 28, 2024 Time of Service: 16:46 PCP:Tariq Mixon Admitting: Dr Harvey, Allergies: No Allergy Information Available, No Known Drug Allergies HISTORY OF PRESENT ILLNESS: [ Patient is 53 years old female past medical history of diabetes, hyperlipidemia, hypertension, ESRD on dialysis Monday with Dr. Bhatia, obesity gastric bypass, cholecystectomy, right eye surgery, tummy [place]ilack, who came to emergency department for persistent, vomiting and weakness that has been going on for quite some time at this moment. Patient has a history of ESRD dialysis. Most recent vital signs temperature 97 pulse 72 respirations 16 blood pressure 152/70 patient is on room air satting 97%. WBC 8.2 hemoglobin 11.2 hematocrit 36.5 platelets 231. Sodium 142 potassium 5.2 CO2 30 BUN 58 creatinine 8.7 GFR five random glucose 75 total calcium 7.4 troponin positive times two (53, 54) BNP 591. Chest x-ray showed no acute pulmonary infiltrate. We will admit patient under hospitalist care for further evaluation. We will consult Dr. Bhatia director pharmacology for need of dialysis.] REVIEW OF SYSTEMS CONSTITUTIONAL: Denies fevers, chills, or night sweats. No unintentional weight loss reported. Generalized body weakness NEUROLOGICAL: Denies headache, amaurosis fugax, motor weakness, sensory deficit, vertigo/spinning sensation, gait abnormalities, or tremors. ENT: No hearing loss, otalgia, otorrhea, rhinitis, rhinorrhea, hoarseness, or sore throat. CARDIOVASCULAR: Denies any exertional angina, dyspnea on exertion, orthopnea, paroxysmal nocturnal dyspnea, palpitations, life-threatening arrhythmias, claudication. PULMONARY: Denies any shortness of breath, cough, phlegm/sputum, hemoptysis, pleuritic chest pain. SLEEP: Denies morning headaches, daytime somnolence or napping. Denies difficulty falling asleep, staying asleep, waking from sleep. Denies knowledge of snoring. GASTROINTESTINAL: Denies any type of dysphagia to either liquids or solids. Denies nausea, vomiting, pyrosis, early satiety, abdominal pain, diarrhea, constipation, or changes in stool consistency or caliber. Denies coffee-ground emesis, hematemesis, hematochezia, or melanotic stools. GENITOURINARY: Denies frequency, urgency, nocturia, hematuria or incontinence (Storage/Irritative symptoms.) Low urinary stream, straining to void, urinary intermittency or hesitancy, splitting of the voiding stream, terminal dribbling. ENDOCRINOLOGIC: Denies polyuria, polydipsia, polyphagia or heat/cold intolerances. HEMATOLOGIC: Denies thrombophilia/previous clots, or coagulopathy/bleeding disorders. ONCOLOGIC: Denies personal history of malignancy. DERMATOLOGIC: Denies rashes or pruritus. PSYCHIATRIC: Denies any suicidal or homicidal ideation. Denies hallucinations. PAST MEDICAL HISTORY: [ ESRD dialysis Monday, diabetes, hyperlipidemia, hypertension, obesity ] PAST SURGICAL HISTORY: [ Gastric bypass surgery, left proximal radiocephalic fistula creation 11/04, surgery of the right eye. Cholecystectomy, Lava, tummy tuck ] PAST SOCIAL HISTORY: [ Patient denies any smoking, alcohol consumption or drug illicit] FAMILY HISTORY: [ Patient lives at home with the family members] Coded Allergies: No Known Allergies (Verified Allergy, 12/16/12) PHYSICAL EXAM GENERAL APPEARANCE: The patient is awake, alert, and oriented, in no acute cardiopulmonary distress. NEUROLOGICAL: Cranial nerves II-XII grossly intact. Motor is 5/5 in bilateral upper and lower extremities proximal to distal. No sensory deficits. HEENT: Face is symmetric. Pupils are equal and reactive. Extraocular movements are intact. NECK: Supple. No JVD. No thyromegaly. No submental, submandibular, pre- /postauricular, occipital or supraclavicular lymphadenopathy. CHEST: Normal chest expansion. No Telemetry. LUNGS: Absence of any rales, rhonchi or any wheezing. CARDIOVASCULAR: Regular. S1 and S2 normal. No appreciable rubs, murmurs or gallops. ABDOMEN: Soft, nontender, and nondistended. There is no rebound, voluntary guarding, or rigidity. : Deferred. No Duffy. EXTREMITIES: Non-edematous and not cyanotic. No clubbing. Good capillary refill. SKIN: No skin breakdown. Vital Sign (Last 24 Hours) 07/28/24 16:10 Temp 97.0 Pulse 72 Resp 16 B/P (MAP) 152/70 Pulse Ox 97 O2 Delivery Room Air* O2 Flow Rate 0 FiO2 21 LABS: Laboratory: Test 07/28/24 14:53 1/12/25 13:17 Range/Units Troponin I High Sensitivity 54 *H 4-50 ng/L White Blood Count 8.2 4.8-10.8 K/uL Red Blood Count 3.50 L 4.00-5.50 MIL/uL Hemoglobin 11.2 L 12.0-16.0 g/dL Hematocrit 36.5 36-48 % Mean Corpuscular Volume 104.3 H 79-99 fL Mean Corpuscular Hemoglobin 32.0 27.0-33.0 pg Mean Corpuscular Hemoglobin Concent 30.7 L 32.0-36.0 g/dL Red Cell Distribution Width 13.7 11.0-15.5 % Platelet Count 231 130-400 K/uL Mean Platelet Volume 9.8 7.5-10.5 fL Immature Granulocyte % (Auto) 0.2 0-1 % Neutrophils (%) (Auto) 58.7 40.0-77.0 % Lymphocytes (%) (Auto) 17.2 L 21.0-51.0 % Monocytes (%) (Auto) 8.2 3.0-13.0 % Eosinophils (%) (Auto) 15.1 H 0.0-8.0 % Basophils (%) (Auto) 0.6 0.0-5.0 % Neutrophils # (Auto) 4.8 1.8-7.7 K/uL Lymphocytes # (Auto) 1.4 1.0-4.8 K/uL Monocytes # (Auto) 0.7 0.1-1.0 K/uL Eosinophils # (Auto) 1.24 H 0.00-0.70 K/uL Basophils # (Auto) 0.05 0.00-0.20 K/uL Absolute Immature Granulocyte (auto 0.02 0-1 K/uL Nucleated Red Blood Cells 0.0 0.0-0.19 % White Cell Morphology Comment See comments Red Blood Cell Morphology See comments Sodium Level 142 136-145 mmol/L Potassium Level 5.2 H 3.5-5.1 mmol/L Chloride Level 105 101-111 mmol/L Carbon Dioxide Level 30 21-32 mmol/L Blood Urea Nitrogen 58 H 7-18 mg/dL Creatinine 8.7 *H 0.5-1.0 mg/dL Glomerular Filtration Rate Calc 5 >90 mL/min Random Glucose 75 70-105 mg/dL Total Calcium 7.4 L 8.5-10.1 mg/dL B-Type Natriuretic Peptide 591 H 0-100 pg/mL Current Medications Medications (Trade) Dose Ordered Sig/King Route PRN Reason Start Time Stop Time Status Last Admin Dose Admin Acetaminophen (TYLenol 325MG TAB) 650 mg Q4H PRN PO MILD PAIN (1-3) 07/28/24 17:00 08/27/24 16:59 UNV Acetaminophen (TYLenol 325MG TAB) 650 mg Q6H PRN PO TEMPERATURE GREATER THAN 101.5 07/28/24 17:00 08/27/24 16:59 UNV Al Hydroxide/Mg Hydroxide (MAALox PLUS 30ML) 30 ml Q6H PRN PO INDIGESTION 07/28/24 17:00 08/27/24 16:59 UNV Dextrose (D50w) 50 ml AD PRN IV HYPOGLYCEMIA PROTOCOL 07/28/24 17:00 08/27/24 16:59 Diphenhydramine HCl (BENAdryl INJ) 25 mg Q6H PRN IV SEVERE ITCHING/RASH 07/28/24 17:00 08/27/24 16:59 UNV Glucagon (Glucagon 1mg Kit) 1 mg AD PRN IM HYPOGLYCEMIA PROTOCOL 07/28/24 17:00 08/27/24 16:59 Guaifenesin/ Dextromethorphan (RobiTUSSin DM 200/20MG 10ML) 10 ml Q4H PRN PO COUGH 07/28/24 17:00 08/27/24 16:59 UNV Heparin Sodium (Porcine) (HEParin 5,000 UNIT VIAL) 5,000 unit BID SQ 07/28/24 21:00 08/27/24 20:59 UNV Insulin Human Regular (humuLIN R 100 UNIT/ML 3ML) INSULIN SLIDING SCAL... ACHS SQ 07/28/24 21:00 08/27/24 20:59 Lactulose (Constulose 20gm/ 30ml Udcup) 20 gm BID PRN PO CONSTIPATION 07/28/24 17:00 08/27/24 16:59 UNV Magnesium Sulfate 50 ml @ 0 mls/hr PROTOCOL PRN IV other 07/28/24 17:00 08/27/24 16:59 Nitroglycerin (Nitrostat) 0.4 mg PROTOCOL PRN SL CHEST PAIN 07/28/24 17:00 08/27/24 16:59 UNV Ondansetron HCl (zoFRAN 4MG INJ) 4 mg Q6H PRN IV NAUSEA/VOMITING 07/28/24 17:00 08/27/24 16:59 UNV Zolpidem Tartrate (AmbIEN) 5 mg HS PRN PO INSOMNIA 07/28/24 17:00 08/27/24 16:59 UNV DIAGNOSTICS / RADIOLOGY: [ ] ASSESSMENT: [ Generalized body weakness POA ESRD on dialysis Monday needing dialysis POA Uncontrolled diabetes mellitus type 2 with hyperglycemia POA Hyperlipidemia POA Uncontrolled hypertension POA Electrolyte imbalance hypokalemia K 5.2, hypocalcemia Ca 7.4 Hyper troponinemia (53, 54) Hyperlipidemia POA Morbid obesity POA Poor vision of the right eye POA Gastric bypass surgery history History of left proximal radiocephalic fistula creation 11/04 History of prior surgery of the right eye History of Lava History of cholecystectomy History of gastric bypass History of tummy tuck ] PLAN: [ Admit to: Medical-surgical floor with telemetry Consults: Program Strategist Antibiotics: None Tests: None NEURO: Minimize central acting medications as possible. Fall Precautions. Well lighted room through the day and minimize interruptions through the night to prevent acute delirium. PULMONARY: Supplemental 02 as needed BiPAP as necessary, for respiratory distress Titrate Fio2 to keep Spo2 > or = 90% DuoNebs and CPT as needed IS hourly while awake for pulmonary hygiene Out of bed to chair as tolerated VAP Bundle Maintain aspiration precautions at all times CARDIOVASCULAR: Follow hemodynamics. Vital signs per facility protocol GI & NUTRITION: Continue nutritional support Aspirations precautions Prokinetic agents and laxatives as needed KIDNEYS & ELECTROLYTES: Strict monitoring of intake and output Daily weights Avoid nephrotoxic agents Monitor electrolytes and replace as needed Goal urine output of 30mL/hr or 0.5mL/kg/hr Medications to be dosed according to renal function. Avoid contrast if possible ENDOCRINE: Maintain blood glucose between 100-180 at all times. Insulin sliding scale for blood glucose management Hypoglycemia and hyperglycemia protocol in place INFECTIOUS DISEASE: Trend temperature, WBC and procalcitonin level Follow cultures, deescalate antibiotics as soon as possible. Panculture if new onset fever HEMATOLOGY & COAGULATION: Monitor H&H. Keep Hgb > 7 Transfuse 1 unit of PRBC for Hgb < 7 Transfuse 1 pack of platelets of platelets < 20, 000 Watch for any signs and symptoms of bleeding SKIN: Pressure ulcer prevention per facility protocol Specialty mattress as needed Treatment plan discussed with patient and family at the bedside Medications to be reconciled once obtained by patient and/or family and available to be reconciled in computer p.r.n. medication for pain nausea and vomiting Questions were answered We will continue to monitor the patient closely Scallop Binder for disposition Rehab: PT/OT GI: PPI DVT: SCD's Code Status: Full Resuscitation Disposition: TBD Prognosis: Guarded] ADVANCED CARE PLANNING 1. Which of the following were discussed? Hospice Care - Yes / No Therapeutic options - Yes / No Advance Directives - Yes / No Other discussions - 2. Discussed with who? Patient 3. Voluntary nature of this service was explained to the patient? Yes / No 4. Amount of time spent - ____ more than 35 minutes ___ 5. Reviewed by Physician? (if this service was performed by NPP) Yes / No ATTESTATION BY PHYSICIAN I have seen and examined the patient. I reviewed the documentation, medical decision making, and treatment plan as noted by the mid-level provider above. I agree with the findings and plan of care. Genoveva Harvey MD, KATARZYNA B DEPARTMENT ADMINISTRATOR Jul 28, 2024 16:47
[2024-07-28] MEDS ORDERED: GLUCAGON 1MG KIT 1 MG ML IM PRN (17:00)
[2024-07-28] MEDS ORDERED: acetaMINOPHEN 325 MG TAB PO PRN ×2 (17:00)
[2024-07-28] MEDS ORDERED: ondanSETRON 4MG INJ IV PRN (17:00)
[2024-07-28] MEDS ORDERED: hydrALAZine 20MG/ML VIAL IV PRN (17:00)
[2024-07-28] MEDS ORDERED: DEXTROSE 50%-WATER 50 ML DISP.SYRIN IV PRN (17:00)
[2024-07-28] MEDS ORDERED: ketOROlac 15MG/ML VIAL (15MG/ML) IV PRN (17:00)
[2024-07-28] MEDS ORDERED: MAGNESIUM 2GM PREMIX 50ML 50 ML IV PRN (17:00)
[2024-07-28] MEDS ORDERED: MAG/ALUM/SIMETH 30 ML UDCUP PO PRN (17:00)
[2024-07-28] MEDS ORDERED: DiphenhydrAMINE HCL 50 MG/ML VIAL IV PRN (17:00)
[2024-07-28] MEDS ORDERED: guaiFENesin-DM 200/20MG 10ML PO PRN (17:00)
[2024-07-28] MEDS ORDERED: NITROGLYCERIN 0.4 MG SL TAB SL PRN (17:00)
[2024-07-28] MEDS ORDERED: LACTULOSE 20 GM/30 ML UDCUP PO PRN (17:00)
--- NOTE | 2024-07-28 17:29 | HMCIMG ---
CHEST 1VW HISTORY: Congestion COMPARISON: None FINDINGS: A frontal projection of the chest was obtained. Prominent interstitial markings are seen with possible superimposed infiltrates. The heart is normal in size. No evidence of aortic calcification is seen. IMPRESSION: 1. Prominent interstitial markings are seen with possible superimposed infiltrates.
[2024-07-28] MEDS: morPHINE 2 MG SYG IVP PRN (17:57)
[2024-07-28 18:00] VITALS: BP 145/67; PULSE 90; RESP 18; TEMP 97.9
--- NOTE | 2024-07-28 18:00 | NUR ---
PATIENT ARRIVED TO UNIT VIA STRETCHER. NO S/S OF DISTRESS NOTED. TELE APPLIED. BED IN LOWEST POSITION CALL LIGHT IN REACH
[2024-07-28 18:05] LABS: INFLUENZA TYPE A Negative For Type A (NEGATIVE); INFLUENZA TYPE B Negative For Type B (NEGATIVE)
[2024-07-28] MEDS ORDERED: IBUP1TAB71 PO (19:45)
[2024-07-28] MEDS: INSULIN humuLIN R 100 UNIT/ML 3ML SQ SCH (19:55)
[2024-07-28 20:00] VITALS: BP 147/73; PULSE 84; RESP 20; TEMP 97.8
[2024-07-28] MEDS ORDERED: DIPHENHYDRAMINE CIT PO PRN (20:00)
[2024-07-28] MEDS ORDERED: IBUPROFEN PO PRN (20:00)
[2024-07-28] MEDS ORDERED: ADVIL PM PO PRN (20:00)
[2024-07-28] MEDS: FAMOTIDINE 20MG VIAL IV SCH (20:30)
[2024-07-28] MEDS: HEParin 5,000 UNIT VIAL SQ SCH (20:30)
[2024-07-28] MEDS: ZOLPidem TARTrate 5 MG TAB PO PRN (20:34)
[2024-07-28] MEDS: acetaMINOPHEN 325 MG TAB PO PRN (20:42)
[2024-07-28 21:00] VITALS: O2SAT 96
[2024-07-29] VITALS (20 sets, daily range): BP systolic 123–182; BP diastolic 51–95; PULSE 78–87; RESP 14–20; TEMP 97.8–98.2; O2SAT 96
[2024-07-29 05:08] LABS: BASOPHILS # (AUTO) 0.06 K/uL (0.00-0.20); BASOPHILS % (AUTO) 0.8 % (0.0-5.0); EOSINOPHILS # (AUTO) 1.15 K/uL (0.00-0.70); EOSINOPHILS % (AUTO) 15.6 % (0.0-8.0); HEMATOCRIT 31.7 % (36-48); IMMATURE GRANULOCYTE ABSOLUTE 0.01 K/uL (0-1); LYMPHOCYTES # (AUTO) 1.8 K/uL (1.0-4.8); LYMPHOCYTES % (AUTO) 24.7 % (21.0-51.0); MEAN CORPUSCULAR HEMOGLOBIN 31.6 pg (27.0-33.0); MEAN CORPUSCULAR VOLUME 105.3 fL (79-99); MONOCYTES # (AUTO) 0.5 K/uL (0.1-1.0); MONOCYTES % (AUTO) 7.2 % (3.0-13.0); NEUTROPHILS # (AUTO) 3.8 K/uL (1.8-7.7); NEUTROPHILS % (AUTO) 51.6 % (40.0-77.0); PLATELET COUNT (AUTO) 212 K/uL (130-400); RED BLOOD CELL COUNT(AUTO) 3.01 MIL/uL (4.00-5.50); RED CELL DISTRIBUTION WIDTH 13.6 % (11.0-15.5); WHITE BLOOD COUNT (AUTO) 7.4 K/uL (4.8-10.8)
[2024-07-29 05:31] LABS: ALBUMIN 3.3 g/dL (3.5-5.0); BILIRUBIN,DIRECT 0.1 mg/dL (0.0-0.3); BILIRUBIN,TOTAL 0.3 mg/dL (0.2-1.0); PHOSPHORUS 4.4 mg/dL (2.5-4.9); POTASSIUM 5.7 mmol/L (3.5-5.1); TOTAL PROTEIN, SERUM 6.8 g/dL (6.0-8.3)
[2024-07-29 05:53] LABS: CREATININE 9.3 mg/dL (0.5-1.0); MAGNESIUM 4.4 mg/dL (1.80-2.40)
--- NOTE | 2024-07-29 06:05 | CONS ---
Patient has hyperkalemia weakness fluid overload and end-stage renal disease HISTORY OF PRESENT ILLNESS: The patient has been brought to the Emergency Room with nausea, vomiting, weakness and shortness of breath. This patient has multiple other comorbidities. The patient has end-stage renal disease, on dialysis Monday, Monday and Monday. The patient has obesity with previous gastric bypass, history of hyperlipidemia, hypertension and multiple other comorbidities. The patient is weak now and some nausea and vomiting is present. The patient has been found to have mild hyperkalemia and has noncompliance with the diet. PAST MEDICAL HISTORY: Hypertension, diabetes, hyperlipidemia, end-stage renal disease, obesity and multiple other as per records. PAST SURGICAL HISTORY: The patient has AV fistula, PermCath, eye surgery, cholecystectomy, tummy tuck and gastric bypass. SOCIAL HISTORY: No smoking, alcohol or drug abuse. FAMILY HISTORY: Negative. No kidney cyst, stone or renal problems. ALLERGIES: No allergies noted. REVIEW OF SYSTEMS: CONSTITUTIONAL: With no fever, chills or rigors. HEENT: With no headache, oral ulcers, sore throat, difficulty swallowing. RESPIRATORY: Has no cough, expectoration, hemoptysis, or pleuritic pain. CARDIOVASCULAR: Has shortness of breath. No orthopnea, PND. GASTROINTESTINAL: Positive for nausea, vomiting. No diarrhea. GENITOURINARY: Negative for dysuria or hematuria. DERMATOLOGICAL: With no rashes, pruritus or skin lesion. ENDOCRINE: No polyuria, polydipsia or polyphagia. PSYCHIATRIC: Negative for anxiety, depression or hallucinations. Other systemic review is unchanged and unremarkable from the past. PHYSICAL EXAMINATION: GENERAL: Pale, no other distress or deformities, lying in bed. VITAL SIGNS: Blood pressure is 157/72, pulse 71, respiratory rate is 18, afebrile. HEENT: Head is atraumatic, normocephalic. Pupils are round and reactive. Sclerae are anicteric. Conjunctivae not pale. Oral mucosa is not dry. External appearance of ears and nose is normal. NECK: Without masses, bruits. Thyroid is palpable. Neck has no bruits. CHEST: Shows diminished at both bases, prolonged expiration, percussion note being resonant in all areas. CARDIAC: Regular rhythm, no rub, no S3, S4. No parasternal heave. ABDOMEN: No guarding or tenderness. Bowel sounds are normoactive. No free fluid. EXTREMITIES: With no edema. No cyanosis, clubbing. BACK: No tenderness or back deformities. NEUROLOGIC: Awake, alert, nonfocal. LABORATORY DATA: We have reviewed available labs in detail. Labs have shown potassium is slightly high at 5.2. Hemoglobin 11.2, low. The patient's creatinine is elevated at 8.7. Troponin is slightly high. BNP is 59. Old records reviewed. Chest x-ray was personally reviewed and has shown prominent interstitial marking, possibility of infiltrates. Old records have been reviewed, external records reviewed, discussed with other team members. PROBLEMS: * The patient is admitted with weakness and has hyperkalemia. * Fluid overload. * Generalized body aches. * Underlying end-stage renal disease. * Underlying diabetic nephropathy. * Underlying hypertension. * Hyperlipidemia. * Morbid obesity and gastric bypass before. * Noncompliance with the diet. * The patient has other comorbidities as above. The patient is generally weak. PLAN: All the previous records were and external records were reviewed in detail. Patient will have labs and x-rays personally reviewed and interpreted * The patient has been admitted. * She will get dialysis Monday, Monday and Monday. * Low potassium diet. IV calcium gluconate and Lokelma can be used * Renal diet. * Insulin coverage for diabetes. * Low dose heparin for DVT prophylaxis. * The patient will have intake, output, weight monitoring. * IV Dilaudid or morphine in low dose for pain 0.5 q.6h. * The patient will have a followup on renal function, anemia. Subcutaneous Epogen as needed for anemia. * Insulin coverage for diabetes and the patient will have DVT with GI prophylaxis. Condition remained guarded. I will suggest one Nephro-Ha daily. Overall condition remained guarded. ADDENDUM ASSESSMENT AND PLAN: This patient has hyperkalemia, fluid overload, diabetes, hypertension, end-stage renal disease, and multiple other comorbidities. The plan is, I have discussed with the other team members. We have reviewed the labs, x-rays personally. Old and external and dialysis records have been reviewed. We will be doing dialysis as soon as possible with the patient having fluid restriction and we will continue monitoring and seen several times today. Thank you for letting me participate in the care of this patient. TID: [id number] RECEIPT: [id number] MTDD
[2024-07-29 06:21] LABS: HEMOGLOBIN A1C 4.6 % (4.0-6.0)
[2024-07-29] MEDS ORDERED: 0.9%NACL 1000ML 1,000 ML IV SCH (09:00)
[2024-07-29] MEDS: Vitamin B Complex/Vit C/Folic Acid PO SCH (10:33)
--- NOTE | 2024-07-29 11:17 | NUR ---
DC HOME Angel met with pt who is on dialysis at [facility] [place], MWF, 550am, she drives self. Pt lives alone in her sister Mary Hunter's home. Pt has no DME, or in home care services. Pt referred pt wilson to PCP Shayy Ba for assist with cane. Pt uses [facility] in [place] for rx. Denies dc needs and will return home at [place].Pt has no or children and sister Carola is ER contact. Addendum: 07/29/24 at 1120 by TEREZA HOUSTON Amended: Links added.
--- NOTE | 2024-07-29 14:59 | NUR ---
PT eval held for dialysis
--- NOTE | 2024-07-29 18:35 | DS ---
Discharge Summary Hospital Course Summary: The Patient is 53 years old female past medical history of diabetes, hyperlipidemia, hypertension, ESRD on dialysis Monday with Dr. Bhatia, obesity gastric bypass, cholecystectomy, right eye surgery, jon patel, who came to emergency department for persistent, vomiting and weakness that has been going on for quite some time at this moment. Upon presentation, blood pressure was 152/70, otherwise nonsignificant. Significant labs: BUN 58, creatinine 8.7, GFR 5 random glucose 75, total calcium 7.4, troponin positive times two (53, 54), BNP 591. Chest x-ray showed no acute pulmonary infiltrate. The patient was admitted on 07/28/24 under hospitalist care for further evaluati on. On 07/29/24, the patient was thoroughly evaluated by a brick setter, who assessed her current health status. Repeat laboratory tests revealed a concerning decline in kidney function, as indicated by the values: potassium 5.7 mEq/L, blood urea nitrogen at 62, creatinine at 9.3,, glomerular filtration rate of 5 mL/min, and magnesium levels were elevated at 4.4 mEq/L. The patient underwent for dialysis, which helped in alleviating her symptoms significantly. She reported a marked improvement in her overall well-being post- dialysis. However, the patient also expressed concerns regarding her right eye, which she suspected might be affected by infection, inflammation, or diabetic retinopathy. This can be addressed by tank erector as an outpatient. The patient is hemodynamically stable for discharge, denies any complaints or concerns and can be followed up with brick setter and [facility] as an outpatient. Superintendent Pier(s): Dr. Vinicius Rodriguez, Clinical Science Consultant Procedure(s): [place] [address] [address] IMAGING REPORT Signed PATIENT: BELIA BERMEO MR#: [id number] : 1970 SEX: F AGE: 53 LOCATION: [facility] ORDER 1238 STATUS: REG ER REPORT#: [id number] SERVICE 1237 REASON: SOB ORDERING PHYSICIAN: CANDI MERLOS MD PROCEDURE: CXR1VW - CHEST 1VW CHEST 1VW HISTORY: Shortness of breath COMPARISON: 06/11/2023 FINDINGS: A frontal projection of the chest was obtained. No acute pulmonary infiltrates is seen. The heart is normal in size. Prominent interstitial markings are seen. Degenerative changes are seen. No evidence of aortic calcification is seen. IMPRESSION: 1. No acute pulmonary infiltrate is seen. DICTATED BY: EMILI NORWOOD MD DATE: 07/28/241552 ELECTRONICALLY SIGNED BY: EMILI NORWOOD MD DATE: 07/28/241555 Assessment/Plan: ASSESSMENT: Generalized body weakness, improved POA ESRD on dialysis Monday, needing dialysis POA Uncontrolled diabetes mellitus type 2 with hyperglycemia POA Hyperlipidemia POA Uncontrolled hypertension POA Electrolyte imbalance hypokalemia K 5.2, hypocalcemia Ca 7.4 elevated troponin (53, 54) in state of ESRD Hyperlipidemia POA Morbid obesity POA Poor vision of the right eye, needing outpatient [facility] evaluation POA Gastric bypass surgery history History of left proximal radiocephalic fistula creation 11/04 History of prior surgery of the right eye History of cholecystectomy History of gastric bypass History of tummy tuck Admission Date: 07/28/2024 Discharge Date: 07/29/2024 Disposition: Home Activity: Ad Kell Condition: Stable Procedure: None Radiology Investigations: Please find the attached Home medications: Continued Discharge medications: None Discharge instructions:- Low potassium diet, Renal diet Follow up appointment: Follow up with the brick setter 2 weeks post discharge for the management of End stage renal disease. Follow up with the [facility] within 2 weeks of discharge for possible right eye infection/inflammation/diabetic retinopathy We reinforced the importance of medication compliance and follow up appointment with the patient. Discharge Instructions: Home Medications: Reported Medications Ibuprofen/Diphenhydramine Cit (Advil Pm Caplet) 200 Mg-38 Mg Tablet, 2 EACH PO HSPRN, TAB 07/28/24 Semaglutide (Ozempic) 0.25 Mg/0.368 Ml Pen.injctr, 0.5 MG SQ QWEEK 06/12/23 Calcitriol (Calcitriol) 0.25 Mcg Capsule, 0.25 MCG PO DAILY, CAP 06/12/23 Ferrous Sulfate (Ferrous Sulfate) 325 Mg Tablet, 325 MG PO DAILY, TAB 09/13/22 Metoprolol Tartrate (Metoprolol Tartrate) 50 Mg Tablet, 50 MG PO BID, TAB 09/13/22 Atorvastatin Calcium (Lipitor) 20 Mg Tablet, 20 MG PO DAILY, TAB !!Remember to check dose!! 09/13/22 Folic Acid/Vitamin B Comp W-C (Marylou-Ha Tablet) 0.8 Mg Tablet, 0.8 MG PO DAILY, TAB 09/13/22 Sevelamer Carbonate (Renvela) 800 Mg Tablet, 1600 MG PO TID, TAB 09/13/22 Hydralazine HCl (Hydralazine HCl) 50 Mg Tablet, 50 MG PO TID, TAB 09/13/22 Continued Medications: Atorvastatin Calcium (Lipitor) 20 Mg Tablet 20 MG PO DAILY, TAB !!Remember to check dose!! Calcitriol (Calcitriol) 0.25 Mcg Capsule 0.25 MCG PO DAILY, CAP Ferrous Sulfate (Ferrous Sulfate) 325 Mg Tablet 325 MG PO DAILY, TAB Folic Acid/Vitamin B Comp W-C (Marylou-Ha Tablet) 0.8 Mg Tablet 0.8 MG PO DAILY, TAB Hydralazine HCl (Hydralazine HCl) 50 Mg Tablet 50 MG PO TID, TAB Ibuprofen/Diphenhydramine Cit (Advil Pm Caplet) 200 Mg-38 Mg Tablet 2 EACH PO HSPRN, TAB Metoprolol Tartrate (Metoprolol Tartrate) 50 Mg Tablet 50 MG PO BID, TAB Semaglutide (Ozempic) 0.25 Mg/0.368 Ml Pen.injctr 0.5 MG SQ QWEEK Sevelamer Carbonate (Renvela) 800 Mg Tablet 1600 MG PO TID, TAB Time spent arranging discharge: 31-60 minutes ATTESTATION BY PHYSICIAN I have seen and examined the patient. I reviewed the documentation, medical decision making, and treatment plan as noted by the resident provider above. I agree with the findings and plan of care. Eloy Harvey MD, MANALI MD Jul 29, 2024 18:35
--- NOTE | 2024-07-29 19:27 | PN ---
DIALYSIS NOTE SUBJECTIVE: The patient was seen and evaluated on hemodialysis, prescription noted. OBJECTIVE: VITAL SIGNS: Blood pressure 135/68. CARDIOVASCULAR: Regular. LUNGS: Coarse. IMPRESSION: End-stage renal disease. PLAN: The patient will continue with maximal ultrafiltration if blood pressure allows. The patient can be discharged from a renal standpoint. The patient will follow up with Ophthalmology as an outpatient. TID: [id number] RECEIPT: [id number]
--- NOTE | 2024-07-29 20:00 | NUR ---
discharge discharge instructions given to patient by marilynn lopez. I removed her iv catheter. catheter tip intact. telemetry pack removed. patient's belongings were given to her in a bag. patient was taken home by her friend. no issues.
== END 2024-07-29 20:00 | disposition home or self-care (01) | DRG 640 ==
LOC: EDH 12:19 → EDHIP 16:39 → 4CH 18:00
PROVIDERS: ADMIT Hospitalist; ATTEND Hospitalist
PROC: 5A1D70Z Performance of Urinary Filtration, Intermittent, Less than 6 Hours Per Day (ICD-10-PCS; principal; 2024-07-29)
DX: E87.5 Hyperkalemia (principal); N18.6 End stage renal disease; I12.0 Hypertensive chronic kidney disease with stage 5 chronic kidney disease or end stage renal disease; E87.70 Fluid overload, unspecified; E11.22 Type 2 diabetes mellitus with diabetic chronic kidney disease; E78.00 Pure hypercholesterolemia, unspecified; E66.01 Morbid (severe) obesity due to excess calories; E11.65 Type 2 diabetes mellitus with hyperglycemia; E83.51 Hypocalcemia; H54.7 Unspecified visual loss; Z99.2 Dependence on renal dialysis; Z79.899 Other long term (current) drug therapy; Z90.49 Acquired absence of other specified parts of digestive tract; Z91.119 Patient's noncompliance with dietary regimen due to unspecified reason; Z98.84 Bariatric surgery status; Z79.1 Long term (current) use of non-steroidal anti-inflammatories (NSAID)
CPT/HCPCS: 36415; 71045; 80048; 80076; 82140; 82550; 82948; 83036; 83605; 83735; 83880; 84100; 84145; 84484; 85025; 86704; 86706; 86803; 87340; 87804; 90935; 93005; G0378; J1644; J2270; J2405; J3490

== ENCOUNTER 2024-11-21 08:43 | Emergency (ER) | payer BC ==
[~2024-11-21] VITALS: Ht 160 cm; Wt 91.6 kg
[~2024-11-21 08:43] MED LIST changes: +IBUP1TAB71 PO
[2024-11-21 09:15] VITALS: BP 165/80; PULSE 109; RESP 20; TEMP 101.2; O2SAT 96
[2024-11-21] MEDS: acetaMINOPHEN/coDEINE 120/12MG 5ML PO STA (09:20)
[2024-11-21] MEDS: dexaMETHasone SOD PHOSPHATE 4 MG/ML 1ML VIAL IM ONE (09:20)
[2024-11-21 09:33] LABS: SARS-CoV-2, RNA, NAAT NEGATIVE SARS CoV-2 (NEGATIVE)
[2024-11-21 09:40] LABS: INFLUENZA TYPE A Negative For Type A (NEGATIVE); INFLUENZA TYPE B Negative For Type B (NEGATIVE)
[2024-11-21 09:46] LABS: RAPID GROUP A STREP positive (NEGATIVE)
[2024-11-21] MEDS ORDERED: AMOX500C2 PO (09:50)
--- NOTE | 2024-11-21 09:51 | ERN ---
General Chief Complaint: Congestion Stated Complaint: COUGH Time Seen by MD: 08:45 Source: patient History of Present Illness Initial Comments PATIENT IS A 54-YEAR-OLD FEMALE COMING IN TO BE EVALUATED FOR URI SYMPTOMS. PATIENT STATES THE SYMPTOMS BEGAN YESTERDAY. SHE STATES THAT SHE HAS BEEN HAVING SORE THROAT NASAL CONGESTION AND A MILD COUGH. Allergies: Coded Allergies: No Known Allergies (Verified Allergy, 12/16/12) Home Meds Reported Medications Ibuprofen/Diphenhydramine Cit (Advil Pm Caplet) 200 Mg-38 Mg Tablet, 2 EACH PO HSPRN, TAB 07/28/24 Semaglutide (Ozempic) 0.25 Mg/0.368 Ml Pen.injctr, 0.5 MG SQ QWEEK 06/12/23 Calcitriol (Calcitriol) 0.25 Mcg Capsule, 0.25 MCG PO DAILY, CAP 06/12/23 Ferrous Sulfate (Ferrous Sulfate) 325 Mg Tablet, 325 MG PO DAILY, TAB 09/13/22 Metoprolol Tartrate (Metoprolol Tartrate) 50 Mg Tablet, 50 MG PO BID, TAB 09/13/22 Atorvastatin Calcium (Lipitor) 20 Mg Tablet, 20 MG PO DAILY, TAB !!Remember to check dose!! 09/13/22 Folic Acid/Vitamin B Comp W-C (Marylou-Ha Tablet) 0.8 Mg Tablet, 0.8 MG PO DAILY, TAB 09/13/22 Sevelamer Carbonate (Renvela) 800 Mg Tablet, 1600 MG PO TID, TAB 09/13/22 Hydralazine HCl (Hydralazine HCl) 50 Mg Tablet, 50 MG PO TID, TAB 09/13/22 Past Medical History Past Medical History: Diabetes-Type II, High Cholesterol, Hypertension, Renal Disese Medical History Other: KIDNEY DISEASE Past Surgical History: Cholecystectomy, LAVA Surgical History Other: GASTRIC BYPASS, TUMMY TUCK, RT EYE SX Family History Family History: Negative Social History Social History: Negative ROS Dictation CONSTITUTIONAL: NO CHILLS, NO FEVER, NO WEAKNESS, NO DIAPHORESIS, NO MALAISE. HEAD/FACE: NO SIGNS OF TRAUMA. EENT: NO EYE PAIN, NO BLURRED VISION, NO TEARING, NO DOUBLE VISION, NO EAR PAIN, NO EAR DISCHARGE, NO NOSE PAIN, NASAL CONGESTION, THROAT PAIN, NO THROAT SWELLING, NO MOUTH PAIN. RESPIRATORY: NO COUGH, NO ORTHOPNEA, NO SOB, NO STRIDOR, NO WHEEZING. CARDIOVASCULAR: NO CHEST PAIN, NO EDEMA, NO PALPITATIONS, NO SYNCOPE. GASTROINTESTINAL/ABDOMINAL: NO ABDOMINAL PAIN, NO CONSTIPATION, NO DIARRHEA, NO NAUSEA, NO VOMITING. GENITOURINARY: NO ABNORMAL DISCHARGE, NO DYSURIA, NO FREQUENT URINATION, NO HEMATURIA. NO COMPLAINTS OF PAIN IN THE GENITALS. MUSCULOSKELETAL: NO BACK PAIN, NO GOUT, NO JOINT PAIN, NO JOINT SWELLING, NO MUSCLE PAIN, NO MUSCLE STIFFNESS, NO NECK PAIN. INTEGUMENTARY: NO CHANGE IN COLOR, NO CHANGE IN HAIR/NAILS, NO DRYNESS, NO LESION, NO LUMPS, NO RASH. NEUROLOGICAL/PSYCH: NO ANXIETY, NOT DEPRESSED, NO EMOTIONAL PROBLEM, NO HEADACHE, NO NUMBNESS, NO PRE-EXISTING DEFICIT, NO HISTORY OF SEIZURES, NO TREMORS, NO WEAKNESS. HEMATOLOGIC/LYMPHATIC: NOT ANEMIC, NO HISTORY OF BLOOD CLOTS, NO APPARENT BLEEDING, NO BRUISING, GLANDS NOT SWOLLEN. ALL SYSTEMS NEGATIVE, EXCEPT NOTED. Physical Exam Physical Exam Dictation VITAL SIGNS: REVIEWED. GENERAL APPEARANCE: ALERT, ORIENTED X3, NO ACUTE DISTRESS, OBESE. HEAD AND FACE: NON-TRAUMATIC. EYES: PERRL, PINK CONJUNCTIVAS, EYELID NO TRAUMA, ANTERIOR CHAMBER CLEAR. EARS: PINNAS INTACT AND NO SIGNS OF TRAUMA OR ERYTHEMA. EAR CANALS CLEAR AND NO DISCHARGE. TMS NO ERYTHEMA. NOSE: NO DISCHARGE, NO BLEEDING. OROPHARYNX: MOUTH NORMAL, TEETH NO CARIES, TONGUE PINK. PHARYNX ERYTHEMA. TONSILS NO EXUDATES, NO ABSCESSES NOTED. MUCOUS MEMBRANE MOIST. NECK: SUPPLE, NON-TENDER, NO THYROMEGALY, NO MASSES, NO JVD, NO BRUITS. BREAST: DEFERRED. CHEST: NO TENDERNESS, NO CREPITUS, NO PARADOXICAL MOVEMENT, NO RETRACTIONS. LUNGS: CLEAR, WELL-VENTILATED, SYMMETRIC, NO RALES, NO WHEEZING, NO RHONCHI, NO STRIDOR, GOOD BREATH SOUNDS BILATERALLY. HEART: REGULAR RATE, REGULAR RHYTHM, NO MURMUR, NO GALLOPS. VASCULAR: NO PERIPHERAL EDEMA. ABDOMEN: SOFT, POSITIVE BOWEL SOUNDS, NONDISTENDED, NO GUARDING, NONTENDER, NO REBOUND, NO MASSES NO HEPATOMEGALY, NO SPLENOMEGALY, NO FOUNTAIN'S SIGN, NO HERNIAS. RECTAL: DEFERRED. GENITAL: DEFERRED. NEUROLOGICAL: NORMAL SPEECH, GROSS MOTOR FUNCTION INTACT, GROSS SENSORY FUNCTION INTACT. MUSCULOSKELETAL: NECK NONTENDER, FULL RANGE OF MOTION, BACK NONTENDER, FULL RANGE OF MOTION. EXTREMITIES: NONTENDER, FULL RANGE OF MOTION. SKIN: COLOR PINK, DRY, NO TURGOR, NO RASH, NO LACERATIONS, NO ABRASIONS, NO CONTUSIONS. LYMPHATICS: DEFERRED. Results Laboratory and Microbiology Lab and Micro Result Laboratory Tests Test 11/21/24 08:59 Influenza Type A Antigen Negative For Type A Influenza Type B Antigen Negative For Type B SARS-CoV-2, RNA, NAAT NEGATIVE SARS CoV-2 Group A Streptococcus Rapid positive (NEGATIVE) *A Labs Reviewed?: Yes MDM MDM: DIFFERENTIAL DIAGNOSIS: PHARYNGITIS, URI, COVID, FLU RATIONALE: TESTS CONSIDERED AND ORDERED SECONDARY TO SHARED DECISION MAKING INCLUDE: PREVIOUS OUTSIDE RECORDS REVIEWED: OLD ER VISITS. RISK OF COMPLICATION AND/OR MORBIDITY OR MORTALITY OF PATIENT MANAGEMENT: NONE MEDICATIONS-PER MEDICATION RECONCILIATION PATIENT IS A 53-YEAR-OLD FEMALE COMING IN TO BE EVALUATED FOR SORE THROAT AND NASAL CONGESTION. PHYSICAL EXAM THERE IS MILD ORAL PHARYNGEAL ERYTHEMA. LABORATORY WORKUP POSITIVE FOR STREP PHARYNGITIS. PATIENT WILL BE DISCHARGED IN STABLE CONDITION WITH THE DIAGNOSIS OF STREP PHARYNGITIS ORAL ANTIBIOTICS WILL BE PROVIDED . ED Course Orders Procedure Category Date Status Time Covid Rna Naat LAB 11/21/24 Complete 08:50 Influenza Type A & B, LAB 11/21/24 Complete Rapid 08:50 Rapid (Group A Strep) LAB 11/21/24 Complete 08:50 Dexamethasone 4mg/Ml PHA 11/21/24 Complete 1ml Vial (Dexametha 09:00 Acetaminophen-Codeine PHA 11/21/24 Complete Elixer (Tylenol-Co 08:50 Current Medications Medications (Trade) Dose Ordered Sig/King Route PRN Reason Start Time Stop Time Status Last Admin Dose Admin Acetaminophen/ Codeine Phosphate (TYLenol-coDEINE (120/12MG 5ML) ELIXIR) 10 ml ONCE STAT PO 11/21/24 08:50 11/21/24 08:54 DC 11/21/24 09:20 Dexamethasone Sodium Phosphate (dexaMETHasone 4MG/ML 1ML VIAL) 4 mg ONCE ONCE IM 11/21/24 09:00 11/21/24 09:01 DC 11/21/24 09:20 Vital Signs Date Time Temp Pulse Resp B/P (MAP) Pulse Ox O2 Delivery O2 Flow Rate FiO2 11/21/24 09:15 101.1 109 20 165/80 96 Room Air* 0 21 11/21/24 08:44 101.5 99 16 162/82 98 Room Air DX & DISP Disposition: Discharge Departure Impression: Primary Impression: Strep pharyngitis Condition: Stable Scripts Amoxicillin (Amoxicillin) 500 Mg Capsule 1 CAP PO TID for 10 Days, #30 CAP 0 Refills Prov: CANDI MERLOS MD 11/21/24 Additional Instructions: FOLLOW-UP WITH PRIMARY CARE PROVIDER IN 1 TO 2 DAYS. TAKE MEDICATIONS DIRECTED HERE IN THE EMERGENCY ROOM. OKAY TO CONTINUE HOME MEDICATIONS UNLESS OTHERWISE DISCUSSED DURING YOUR VISIT IN THE EMERGENCY ROOM TODAY. RETURN TO [facility] EM[facility]GENCY RO[facility] IF SYMPTOMS WORSEN OR IF THERE IS NO IMPROVEMENT. CALL 911 IF YOU NEED IMMEDIATE ASSISTANCE. TAKE TYLENOL [id number] NEEDED AND IF NO CONTRAINDICATIONS ARE PRESENT. INCREASE ORAL HYDRATION. A WOUND CULTURE OR URINE CULTURE WAS ORDERED HERE IN THE EMERGENCY ROOM DEPARTMENT PLEASE FOLLOW-UP WITH PRIMARY CARE PROVIDER AND ADVISE THEM TO GET REPEAT PORTS FROM OUR FACILITY. IF YOU HAD ANY ERIC WRAP/SPLINTS THAT WERE APPLIED HERE, PLEASE DO NOT REMOVE THEM UNTIL YOU SEE YOUR PRIMARY CARE OR SPECIALTY. REFERRALS: Referrals: THOMAS HEATH M.D. (PCP) Time of Disposition: 09:50 CANDI MERLOS MD November 21, 2024 09:51
[2024-11-24] MEDS ORDERED: NIFE-78 PO (12:35)
[2024-11-24] MEDS ORDERED: CLOP75TA32 PO (12:35)
[2024-11-24] MEDS ORDERED: ASPI-1005 PO (12:35)
[2024-11-24] MEDS ORDERED: CARV6.25 PO (12:35)
[2024-11-25] MEDS ORDERED: BRIN8DRO2 OP (18:10)
[2024-11-25] MEDS ORDERED: LATA2.5D14 OP (18:10)
[2024-11-25] MEDS ORDERED: ZOLP-685 PO (20:01)
[2024-11-29] MEDS ORDERED: LISI10TA24 PO (16:01)
[2024-11-29] MEDS ORDERED: METO25 NG (16:01)
[2024-11-29] MEDS ORDERED: ATOR20TA65 PO (16:01)
[2024-11-29] MEDS ORDERED: CEPH500B PO (16:05)
[2024-11-29] MEDS ORDERED: PRED20TA3 PO (16:05)
[2024-11-29] MEDS ORDERED: SYMB8060 IH (16:05)
== END 2024-11-21 09:57 | disposition home or self-care (01) ==
LOC: EDH 08:43
DX: J02.0 Streptococcal pharyngitis (principal); E11.9 Type 2 diabetes mellitus without complications; E78.00 Pure hypercholesterolemia, unspecified; I10 Essential (primary) hypertension; Z20.822 Contact with and (suspected) exposure to COVID-19; Z79.85 Long-term (current) use of injectable non-insulin antidiabetic drugs; Z79.899 Other long term (current) drug therapy; Z90.49 Acquired absence of other specified parts of digestive tract; Z98.84 Bariatric surgery status
CPT/HCPCS: 99284; 87635; 87880; 87804 ×2; 96372; J1100